=== PATIENT | female | born 1995 | race American Indian/Alaskan Native ===

== ENCOUNTER 2020-01-16 01:44 | Emergency (ER) | payer SELFPAY ==
[2020-01-16 01:55] VITALS: BP 133/52
[2020-01-16] MEDS ORDERED: ACETAMINOPHEN 500 MG TAB PO ONE (03:27)
[2020-01-16] MEDS ORDERED: IBUPROFEN 600 MG TAB PO ONE ×2 (03:28→03:29)
[2020-01-16] MEDS ORDERED: ACETAMINOPHEN 500 MG TAB ONE (03:29)
[2020-01-16] MEDS ORDERED: SODIUM CHLORIDE 0.9% 1000 ML 1,000 ML IV ONE (04:18)
[2020-01-16] MEDS ORDERED: IPRATROPIUM/ALBUTEROL SULFATE 3 ML AMPUL.NEB IH ONE (04:18)
[2020-01-16] MEDS ORDERED: dexAMETHasone 20 MG/5 ML VIAL IV ONE (04:18)
[2020-01-16 04:44] LABS: Basophils % (Auto) 0.3 % (0.0-1.8); Hematocrit 34.3 % (30.3-42.9); Hemoglobin 10.6 gm/dl (10.1-14.3); Lymphocytes # (Auto) 0.9 K/mm3 (1.2-5.4); Lymphocytes % (Auto) 24.7 % (13.4-35.0); Mean Corpuscular HGB Conc 31 % (30-34); Mean Corpuscular Volume 67 fl (79-97); Monocytes # (Auto) 0.2 K/mm3 (0.0-0.8); Monocytes % (Auto) 4.7 % (0.0-7.3); Platelet Count 260 K/mm3 (140-440); Red Blood Count 5.12 M/mm3 (3.65-5.03); Red Cell Distribution Width 19.9 % (13.2-15.2)
[2020-01-16 05:07] LABS: Alanine Aminotransferase 31 units/L (7-56); Albumin 3.6 g/dL (3.9-5); BUN/Creatinine Ratio 11; Blood Urea Nitrogen 9 mg/dL (7-17); Calcium 8.1 mg/dL (8.4-10.2); Hemolysis Index 6
--- NOTE | 2020-01-16 05:33 | XRay Report ---
CHEST PA AND LATERAL VIEWS INDICATION: cough, fever. COMPARISON: None. FINDINGS: Support devices: None. Heart: Within normal limits. Lungs/Pleura: There are patchy airspace opacities in the right mid to lower lung. Left lung is clear. No pleural abnormality. IMPRESSION: 1. Patchy right lung pneumonia Signer Name: Guy Kerns MD Signed: 01/16/2020 5:29 AM Workstation Name: [id number]
[2020-01-16] MEDS ORDERED: levoFLOXacin 750 MG TAB PO ONE (05:55)
--- NOTE | 2020-01-16 06:13 | Emergency Department Report ---
- General Chief Complaint: Upper Respiratory Infection Stated Complaint: HEADACHE, DIFFICULTY IN BREATHING Source: patient Mode of arrival: Ambulatory Limitations: No Limitations - History of Present Illness Initial Comments: Patient is a nulliparous 24-year-old -Scottish female with a history of asthma who presents to the ED with complaint of acute onset persistent nasal and sinus congestion, severe frontal sinus pressure and frontal headache, persistent dry cough with wheezing and shortness of breath, diffuse body aches and pains, lack of appetite, intermittent fever of up to 102 F for the last 1 week. Patient states that her own mother has had similar symptoms. Patient also states that the whole family has been tested for COVID-19 viral infection, the results of which are pending at this time. Patient states that she has been taking anjx-kjl-aywxevg medications including decongestants and antipyretics with no relief. Patient also states that she has been using her albuterol inh aler more frequently at home since the onset of the symptoms. Patient also states that the last time she took antipyretics was over 12 hours ago. Patient denies dizziness, syncope, chest pain, abdominal pain, nausea, vomiting, diarrhea, dysuria, urinary frequency and urgency, sore throat, low back pain or vaginal bleeding. MD Complaint: fever, cough, rhinorrhea, nasal congestion, sinus pain, other (Diffuse body aches and pains and shortness of breath) -: Sudden, week(s) (1) Severity: severe Severity scale (0 -10): 7 Quality: sharp, aching Consistency: constant Improves With: nothing Worsens With: nothing Context: sick contacts Associated Symptoms: denies other symptoms, fever, chills, myalgias, headache, rhinorrhea, nasal congestion, cough, shortness of breath. denies: diaphoresis, sore throat, chest pain, abdominal pain, nausea, vomiting, diarrhea, dysuria, rash, right sweats, weight loss, hoarseness, ear pain, other Treatments Prior to Arrival: Acetaminophen, "cold medicine" - Related Data Previous Rx's Medication Instructions Recorded Last Taken Type Benzonatate [Tessalon Perles] 100 mg PO Q8HR #30 capsule 01/16/20 Unknown Rx Cetirizine HCl [Zyrtec 10mg tab] 10 mg PO DAILY #30 tablet 01/16/20 Unknown Rx Ibuprofen [Motrin] 800 mg PO Q8HR PRN #30 tablet 01/16/20 Unknown Rx levoFLOXacin [Levaquin TAB] 500 mg PO QDAY #10 tablet 01/16/20 Unknown Rx methylPREDNISolone [Medrol 4MG 4 mg PO DAILY #21 tab.ds.pk 01/16/20 Unknown Rx DOSEPAK (21 tabs)] Allergies Allergy/AdvReac Type Severity Reaction Status Date / Time No Known Allergies Allergy Verified 01/16/20 03:28 ED Review of Systems ROS: Stated complaint: HEADACHE, DIFFICULTY IN BREATHING Other details as noted in HPI Constitutional: chills, fever, malaise, weakness Eyes: denies: eye pain, eye discharge, vision change ENT: congestion, other (Grossly congested nasal passages; frontal sinus pressure). denies: ear pain, throat pain Respiratory: cough, shortness of breath, wheezing Cardiovascular: denies: chest pain, palpitations Endocrine: no symptoms reported Gastrointestinal: denies: abdominal pain, nausea, vomiting, diarrhea Genitourinary: denies: urgency, dysuria, discharge Musculoskeletal: back pain, arthralgia, myalgia. denies: joint swelling Skin: denies: rash, lesions Neurological: headache. denies: weakness, paresthesias Psychiatric: denies: anxiety, depression Hematological/Lymphatic: denies: easy bleeding, easy bruising ED Past Medical Hx - Past Medical History Hx Asthma: Yes - Surgical History Past Surgical History?: No - Social History Smoking Status: Never Smoker Substance Use Type: Alcohol - Medications Home Medications: Home Medications Medication Instructions Recorded Confirmed Last Taken Type Benzonatate [Tessalon Perles] 100 mg PO Q8HR #30 capsule 01/16/20 Unknown Rx Cetirizine HCl [Zyrtec 10mg tab] 10 mg PO DAILY #30 tablet 01/16/20 Unknown Rx Ibuprofen [Motrin] 800 mg PO Q8HR PRN #30 tablet 01/16/20 Unknown Rx levoFLOXacin [Levaquin TAB] 500 mg PO QDAY #10 tablet 01/16/20 Unknown Rx methylPREDNISolone [Medrol 4MG 4 mg PO DAILY #21 tab.ds.pk 01/16/20 Unknown Rx DOSEPAK (21 tabs)] ED Physical Exam - General Limitations: No Limitations General appearance: alert, in no apparent distress - Head Head exam: Present: atraumatic, normocephalic, normal inspection - Eye Eye exam: Present: normal appearance, PERRL, EOMI Pupils: Present: normal accommodation - ENT ENT exam: Present: normal orophraynx, mucous membranes moist, TM's normal bilaterally, normal external ear exam, other (Grossly congested nasal passages, palpable frontal and maxillary sinus tenderness) - Neck Neck exam: Present: normal inspection, full ROM. Absent: tenderness, lymphadenopathy - Respiratory Respiratory exam: Present: wheezes (Diffusely coarse wheezes and mild rails in the right lower lobe), rales. Absent: respiratory distress, rhonchi, chest wall tenderness, accessory muscle use, decreased breath sounds - Cardiovascular Cardiovascular Exam: Present: normal rhythm, tachycardia, normal heart sounds. Absent: systolic murmur, diastolic murmur, rubs, gallop - GI/Abdominal GI/Abdominal exam: Present: soft, normal bowel sounds. Absent: tenderness, guarding, rebound, hyperactive bowel sounds, hypoactive bowel sounds, organomegaly, bruit - Extremities Exam Extremities exam: Present: normal inspection, full ROM, normal capillary refill. Absent: pedal edema, joint swelling - Back Exam Back exam: Present: normal inspection, full ROM. Absent: tenderness, CVA tenderness (R), CVA tenderness (L), muscle spasm, paraspinal tenderness, vert ebral tenderness - Neurological Exam Neurological exam: Present: alert, oriented X3, CN II-XII intact, normal gait, reflexes normal - Psychiatric Psychiatric exam: Present: normal affect, normal mood - Skin Skin exam: Present: warm, dry, intact, normal color. Absent: rash ED Course Vital Signs 01/16/20 01/16/20 01/16/20 01:52 03:25 06:34 Temperature 102.2 F H 102.4 F H 98.3 F Pulse Rate 119 H 114 H 106 H Respiratory 18 18 16 Rate Blood Pressure 133/52 O2 Sat by Pulse 94 100 95 Oximetry ED Medical Decision Making - Lab Data Result diagrams: 01/16/20 04:32 01/16/20 04:32 - Radiology Data Radiology results: report reviewed, image reviewed Findings [facility] [address] [place] [address] XRay Report Signed Patient: SOUMYA PELLETIER MR#: [id number] : 1995 Acct:[id number] Age/Sex: 24 / F ADM Date: 01/16/20 Loc: ED Attending Dr: Ordering Physician: SIDDHARTHA BAKER Date of Service: 01/16/20 Procedure(s): XR chest routine 2V Accession Number(s): [id number] cc: SIDDHARTHA BAKER Fluoro Time In Minutes: CHEST PA AND LATERAL VIEWS INDICATION: cough, fever. COMPARISON: None. FINDINGS: Support devices: None. Heart: Within normal limits. Lungs/Pleura: There are patchy airspace opacities in the right mid to lower lung. Left lung is clear. No pleural abnormality. IMPRESSION: 1. Patchy right lung pneumonia Signer Name: Guy Kerns MD Signed: 01/16/2020 5:29 AM Workstation Name: [id number] Transcribed By: SHAAN Dictated By: Guy Kerns MD Electronically Authenticated By: Guy Kerns MD Signed Date/Time: 01/16/20528 DD/ 7 TD/TT - Medical Decision Making This is a nulliparous 24-year-old -Scottish female with a history of asthma who presents to the ED with complaint of acute onset persistent nasal and sinus congestion, severe frontal sinus pressure and frontal headache, persistent dry cough with wheezing and shortness of breath, diffuse body aches and pains, lack of appetite, intermittent fever of up to 102 F for the last 1 week. Patient states that her own mother has had similar symptoms. Patient also states that the whole family has been tested for COVID-19 viral infection, the results of which are pending at this time. Patient states that she has been taking xknh-dgc-hczhsrp medications including decongestants and antipyretics with no relief. Patient also states that she has been using her albuterol inhaler more frequently at home since the onset of the symptoms. Patient also states that the last time she took antipyretics was over 12 hours ago. In the ED, patient is alert and oriented x3 and is not in distress but tachycardic and febrile in triage. Patient was treated for fever in the ED with Tylenol and ibuprofen. Patient also received DuoNeb treatment and oral steroid. Lab test results were reviewed and showed mild leukopenia of 3.8. The rest of the lab test results are nonactionable. Chest x-ray shows patchy airspace opacities in the right mid to lower lung. Left lung is otherwise clear. No pleural abnormality. Patient was also treated in the ED with Levaquin 750 mg p.o. x1. On reevaluation, patient's fever and tachycardia resolved. Patient was discharged home on medications including oral antibiotics and was advised to follow-up with her primary care physician in 5 to 7 days for reevaluation or return to the ED immediately if symptoms get worse. - Differential Diagnosis pneumonia; bronchitis; asthma; sinusitis; Covid-19; URI Critical care attestation.: If time is entered above; I have spent that time in minutes in the direct care of this critically ill patient, excluding procedure time. ED Disposition Clinical Impression: Fever and chills, Acute upper respiratory infection Community acquired pneumonia Qualifiers: Laterality: right Lung location: lower lobe of lung Qualified Code(s): J18.9 - Pneumonia, unspecified organism Acute frontal sinusitis Qualifiers: Recurrence: non-recurrent Qualified Code(s): J01.10 - Acute frontal sinusitis, unspecified Disposition: DC- TO HOME OR SELFCARE Is pt being admited?: No Does the pt Need Aspirin: No Condition: Stable Instructions: Fever in Adults (ED), Upper Respiratory Infection (ED), Acute Bacterial Rhinosinusitis (ED), Community-acquired Pneumonia (ED) Additional Instructions: Your lab test results are unremarkable. Chest x-ray however shows pneumonia in the right lower lobe of the lung. Therefore take medications with food, drink plenty of fluids and follow-up with your primary care physician in 5 to 7 days for reevaluation. Return to the ED immediately if symptoms get worse. Prescriptions: levoFLOXacin [Levaquin TAB] 500 mg PO QDAY #10 tablet methylPREDNISolone [Medrol 4MG DOSEPAK (21 tabs)] 4 mg PO DAILY #21 tab.ds.pk Ibuprofen [Motrin] 800 mg PO Q8HR PRN #30 tablet PRN Reason: Pain , Severe (7-10) Benzonatate [Tessalon Perles] 100 mg PO Q8HR #30 capsule Cetirizine HCl [Zyrtec 10mg tab] 10 mg PO DAILY #30 tablet Referrals: [facility] [Provider Group] - 7-10 days Time of Disposition: 06:22 Print Language: ITALIAN
[2020-01-16 06:19] LABS: Bacteria,Urine 1+ /HPF (Negative); Bilirubin,Urine NEG (Negative); Blood,Urine NEG (Negative); Color,Urine Yellow (Yellow); Mucus,Urine FEW /HPF; Urobilinogen,Urine < 2.0 mg/dL (<2.0)
== END 2020-01-16 06:50 | disposition home or self-care (01) ==
LOC: ED 01:44
DX: J18.9 Pneumonia, unspecified organism (principal); J01.10 Acute frontal sinusitis, unspecified; J45.909 Unspecified asthma, uncomplicated
CPT/HCPCS: 36415; 71046; 80053; 81001; 84703; 85025; 87116; 87400; 87430; 94640; 96374; 99284; J1100

== ENCOUNTER 2020-05-19 17:25 | Emergency (ER) | payer OTHER ==
[2020-05-19 17:39] VITALS: BP 130/49
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
== END 2020-05-19 19:00 | disposition home or self-care (01) ==
LOC: ED 17:25
DX: M43.06 Spondylolysis, lumbar region (principal); M54.6 Pain in thoracic spine; J45.909 Unspecified asthma, uncomplicated; Z79.1 Long term (current) use of non-steroidal anti-inflammatories (NSAID); Z79.899 Other long term (current) drug therapy; V49.59XA Passenger injured in collision with other motor vehicles in traffic accident, initial encounter; Y93.89 Activity, other specified; Y92.410 Unspecified street and highway as the place of occurrence of the external cause; Y99.8 Other external cause status
CPT/HCPCS: 72100; 72131

== ENCOUNTER 2020-10-27 15:00 | Emergency (ER) | payer SELFPAY ==
[2020-10-27 16:09] VITALS: BP 130/84
[2020-10-27] MEDS ORDERED: dexAMETHasone 20 MG/5 ML VIAL IM ONE (16:41)
[2020-10-27] MEDS ORDERED: ALBUTEROL 2.5 MG/3 ML NEBU IH ONE (16:41)
[2020-10-27] MEDS ORDERED: IPRATROPIUM 0.02% NEBU 2.5 ML IH ONE (16:41)
--- NOTE | 2020-10-27 16:41 | Event Note ---
ED Screening Note ED Screening Note: asthma exacerbation that began 2PM today states she used her inhaler without much relief states she ran out of her solution for her nebulizer machine no fever, no v/d, no productive cough no recent travel no sick contacts PMHx none no allergies to meds LNMP: 10/14/2020 This initial assessment/diagnostic orders/clinical plan/treatment(s) is/are subject to change based on patients health status, clinical progression and re- assessment by fellow clinical providers in the ED. Further treatment and workup at subsequent clinical providers discretion. Patient/guardian urged not to elope from the ED as their condition may be serious if not clinically assessed and managed. Initial orders include: meds
--- NOTE | 2020-10-27 17:28 | Emergency Department Report ---
ED Asthma HPI - General Chief Complaint: Adult Asthma Stated Complaint: ASTHMA Time Seen by Provider: 10/27/20 16:40 Source: patient Mode of arrival: Ambulatory Limitations: No Limitations - History of Present Illness Initial Comments: 25-year-old -[place] female with a history of asthma presents to the emergency room for wheezing shortness of breath and cough that started about 2 PM today. Patient states that she has been using her inhaler and nebulizer. She states she ran out of her inhaler this afternoon. She denies any fever no chills no nausea no vomiting no diarrhea. She does admit to postnasal drip sneezing. She is unaware if she has a history of seasonal allergies. MD Complaint: "asthma attack", shortness of breath, wheezing -: This afternoon Time: 14:00 Asthma History: history of frequent attac Severity: mild Context: ran out of meds Associated Symptoms: productive cough, dry cough. denies: fever, chest pain Treatments Prior to Arrival: inhaled bronchodilator - Related Data Current Asthma Therapy: inhaled bronchodilator Previous Rx's Medication Instructions Recorded Last Taken Type Benzonatate [Tessalon Perles] 100 mg PO Q8HR #30 capsule 01/16/20 Unknown Rx Cetirizine HCl [Zyrtec 10mg tab] 10 mg PO DAILY #30 tablet 01/16/20 Unknown Rx Ibuprofen [Motrin] 800 mg PO Q8HR PRN #30 tablet 01/16/20 Unknown Rx levoFLOXacin [Levaquin TAB] 500 mg PO QDAY #10 tablet 01/16/20 Unknown Rx methylPREDNISolone [Medrol 4MG 4 mg PO DAILY #21 tab.ds.pk 01/16/20 Unknown Rx DOSEPAK (21 tabs)] Albuterol Sulfate [Proventil Hfa] 1 - 2 puff IH Q6H PRN #1 hfa.aer.ad 01/17/20 Unknown Rx Dicyclomine [Bentyl] 20 mg PO Q6H PRN #20 tablet 01/17/20 Unknown Rx Famotidine [Pepcid] 20 mg PO BID #30 tablet 01/17/20 Unknown Rx Ondansetron [Zofran Odt] 4 mg PO Q6HR PRN #20 tab.rapdis 01/17/20 Unknown Rx Naproxen [EC-Naproxen] 500 mg PO BID PRN #14 tablet. 05/19/20 Unknown Rx methOCARBAMOL [Robaxin TAB] 500 mg PO BID PRN #14 tab 05/19/20 Unknown Rx Albuterol Sulfate [Proair 90 mcg IH QID PRN #1 aer.pow.ba 10/27/20 Unknown Rx Respiclick] Cetirizine HCl [Zyrtec 10mg tab] 10 mg PO DAILY #60 tablet 10/27/20 Unknown Rx Prednisone [predniSONE 5 mg (6-Day 5 mg PO .TAPER #1 tab.ds.pk 10/27/20 Unknown Rx Pack, 21 Tabs)] Allergies Allergy/AdvReac Type Severity Reaction Status Date / Time No Known Allergies Allergy Verified 10/27/20 16:07 ED Review of Systems ROS: Stated complaint: ASTHMA Other details as noted in HPI Comment: All other systems reviewed and negative ED Past Medical Hx - Past Medical History Hx Asthma: Yes - Surgical History Past Surgical History?: No - Social History Smoking Status: Never Smoker Substance Use Type: None - Medications Home Medications: Home Medications Medication Instructions Recorded Confirmed Last Taken Type Benzonatate [Tessalon Perles] 100 mg PO Q8HR #30 capsule 01/16/20 Unknown Rx Cetirizine HCl [Zyrtec 10mg tab] 10 mg PO DAILY #30 tablet 01/16/20 Unknown Rx Ibuprofen [Motrin] 800 mg PO Q8HR PRN #30 tablet 01/16/20 Unknown Rx levoFLOXacin [Levaquin TAB] 500 mg PO QDAY #10 tablet 01/16/20 Unknown Rx methylPREDNISolone [Medrol 4MG 4 mg PO DAILY #21 tab.ds.pk 01/16/20 Unknown Rx DOSEPAK (21 tabs)] Albuterol Sulfate [Proventil Hfa] 1 - 2 puff IH Q6H PRN #1 hfa.aer.ad 01/17/20 Unknown Rx Dicyclomine [Bentyl] 20 mg PO Q6H PRN #20 tablet 01/17/20 Unknown Rx Famotidine [Pepcid] 20 mg PO BID #30 tablet 01/17/20 Unknown Rx Ondansetron [Zofran Odt] 4 mg PO Q6HR PRN #20 tab.rapdis 01/17/20 Unknown Rx Naproxen [EC-Naproxen] 500 mg PO BID PRN #14 tablet. 05/19/20 Unknown Rx methOCARBAMOL [Robaxin TAB] 500 mg PO BID PRN #14 tab 05/19/20 Unknown Rx Albuterol Sulfate [Proair 90 mcg IH QID PRN #1 aer.pow.ba 10/27/20 Unknown Rx Respiclick] Cetirizine HCl [Zyrtec 10mg tab] 10 mg PO DAILY #60 tablet 10/27/20 Unknown Rx Prednisone [predniSONE 5 mg (6-Day 5 mg PO .TAPER #1 tab.ds.pk 10/27/20 Unknown Rx Pack, 21 Tabs)] ED Physical Exam - General Limitations: No Limitations General appearance: alert, in no apparent distress - Head Head exam: Present: atraumatic, normocephalic - Eye Eye exam: Present: normal appearance - ENT ENT exam: Present: normal exam, mucous membranes moist - Respiratory Respiratory exam: Present: wheezes, prolonged expiratory - Cardiovascular Cardiovascular Exam: Present: regular rate, normal rhythm - GI/Abdominal GI/Abdominal exam: Present: soft - Extremities Exam Extremities exam: Present: normal inspection, full ROM - Back Exam Back exam: Present: normal inspection - Neurological Exam Neurological exam: Present: alert, oriented X3, normal gait - Psychiatric Psychiatric exam: Present: normal affect, normal mood - Skin Skin exam: Present: warm, dry, intact, normal color. Absent: rash ED Course Vital Signs 10/27/20 16:08 Temperature 98.1 F Pulse Rate 92 H Respiratory 22 Rate Blood Pressure 130/84 O2 Sat by Pulse 100 Oximetry Critical care attestation.: If time is entered above; I have spent that time in minutes in the direct care of this critically ill patient, excluding procedure time. ED Disposition Clinical Impression: Severely overweight Asthma attack Qualifiers: Asthma severity: mild Asthma persistence: unspecified Qualified Code(s): J45.901 - Unspecified asthma with (acute) exacerbation Disposition: DC-01 TO HOME OR SELFCARE Is pt being admited?: No Does the pt Need Aspirin: No Condition: Stable Instructions: Asthma, Adult, [id number] Additional Instructions: Please use medication as prescribed. Is very important for you to follow-up with a primary care provider. Prescriptions: Prednisone [predniSONE 5 mg (6-Day Pack, 21 Tabs)] 5 mg PO .TAPER #1 tab.ds.pk Albuterol Sulfate [Proair Respiclick] 90 mcg IH QID PRN #1 aer.pow.ba PRN Reason: Wheezing Cetirizine HCl [Zyrtec 10mg tab] 10 mg PO DAILY #60 tablet Referrals: AZUL MCGINNIS MD [Staff Physician] - 3-5 Days Forms: Work/School Release Form(ED)
== END 2020-10-27 18:24 | disposition home or self-care (01) ==
LOC: ED 15:00
DX: E66.3 Overweight (principal); J45.909 Unspecified asthma, uncomplicated; Z79.899 Other long term (current) drug therapy
CPT/HCPCS: 94640; 96372; 99282; J1100

== ENCOUNTER 2021-03-11 09:10 | Emergency (ER) | payer SELFPAY ==
[2021-03-11 09:33] VITALS: BP 154/88
--- NOTE | 2021-03-11 10:30 | Electrocardiograph Report ---
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
--- NOTE | 2021-03-11 11:17 | Emergency Department Report ---
ED General Adult HPI - General Chief complaint: Arrhythmia/Palpitations Stated complaint: CHEST PAIN ANXIETY ATTACK Time Seen by Provider: 03/11/21 10:55 Source: patient Mode of arrival: Ambulatory Limitations: No Limitations - History of Present Illness Initial comments: 25-year-old female patient with history of BMI > 54 and asthma presents to the emergency department with complaints of chest tightness, palpitations, lightheadedness, dizziness, and nausea starting approximately 6 hours ago. [place] when symptoms began. Patient has attributed her symptoms to a "panic attack." However, nena ent has never been diagnosed with anxiety, and has never experienced similar symptoms. Patient states she was not feeling particularly anxious or stressed prior to the onset of her symptoms. Patient endorses decreased oral intake this week following a dental procedure 4 days ago. She drank one Pepsi yesterday, which she states is consistent with her baseline caffeine intake. States her current symptoms are inconsistent with prior asthma flareups. Denies fever, chills, cough, wheezing, vomiting, syncope, seizure, headache, vision changes. Denies all other complaints at this time. Severity scale (0 -10): 0 - Related Data Previous Rx's Medication Instructions Recorded Last Taken Type Benzonatate [Tessalon Perles] 100 mg PO Q8HR #30 capsule 01/16/20 Unknown Rx Cetirizine HCl [Zyrtec 10mg tab] 10 mg PO DAILY #30 tablet 01/16/20 Unknown Rx Ibuprofen [Motrin] 800 mg PO Q8HR PRN #30 tablet 01/16/20 Unknown Rx levoFLOXacin [Levaquin TAB] 500 mg PO QDAY #10 tablet 01/16/20 Unknown Rx methylPREDNISolone [Medrol 4MG 4 mg PO DAILY #21 tab.ds.pk 01/16/20 Unknown Rx DOSEPAK (21 tabs)] Albuterol Sulfate [Proventil Hfa] 1 - 2 puff IH Q6H PRN #1 hfa.aer.ad 01/17/20 Unknown Rx Dicyclomine [Bentyl] 20 mg PO Q6H PRN #20 tablet 01/17/20 Unknown Rx Famotidine [Pepcid] 20 mg PO BID #30 tablet 01/17/20 Unknown Rx Ondansetron [Zofran Odt] 4 mg PO Q6HR PRN #20 tab.rapdis 01/17/20 Unknown Rx Naproxen [EC-Naproxen] 500 mg PO BID PRN #14 tablet.dr 05/19/20 Unknown Rx methOCARBAMOL [Robaxin TAB] 500 mg PO BID PRN #14 tab 05/19/20 Unknown Rx Albuterol Sulfate [Proair 90 mcg IH QID PRN #1 aer.pow.ba 10/27/20 Unknown Rx Respiclick] Cetirizine HCl [Zyrtec 10mg tab] 10 mg PO DAILY #60 tablet 10/27/20 Unknown Rx Prednisone [predniSONE 5 mg (6-Day 5 mg PO .TAPER #1 tab.ds.pk 10/27/20 Unknown Rx Pack, 21 Tabs)] Allergies Allergy/AdvReac Type Severity Reaction Status Date / Time No Known Allergies Allergy Verified 10/27/20 16:07 ED Review of Systems ROS: Stated complaint: CHEST PAIN ANXIETY ATTACK Other details as noted in HPI Other: GENERAL: Negative for fever, chills, weight change, anorexia, fatigue. ENT: Negative for ear pain, difficulty hearing, sore throat, nasal congestion, epistaxis. CARDIOVASCULAR: Positive for palpitations and chest tightness. PULMONARY: Negative for cough, dyspnea, wheezing, orthopnea, cyanosis. GASTROINTESTINAL: Positive for nausea. MUSCULOSKELETAL: Negative for joint pain, joint swelling, myalgias, back pain, neck pain. NEUROLOGICAL: Positive for dizziness and lightheadedness. INTEGUMENTARY: Negative for erythema, rash, diaphoresis, laceration, ecchymosis. HEMATOLOGICAL: Negative for hemoptysis, hematemesis, hematochezia, hematuria. PSYCHIATRIC: Negative for hallucinations, suicidal ideation, homicidal ideation, anxiety, depression. ED Past Medical Hx - Past Medical History Previous Medical History?: Yes Hx Asthma: Yes - Surgical History Past Surgical History?: No - Social History Smoking Status: Never Smoker Substance Use Type: None - Medications Home Medications: Home Medications Medication Instructions Recorded Confirmed Last Taken Type Benzonatate [Tessalon Perles] 100 mg PO Q8HR #30 capsule 01/16/20 Unknown Rx Cetirizine HCl [Zyrtec 10mg tab] 10 mg PO DAILY #30 tablet 01/16/20 Unknown Rx Ibuprofen [Motrin] 800 mg PO Q8HR PRN #30 tablet 01/16/20 Unknown Rx levoFLOXacin [Levaquin TAB] 500 mg PO QDAY #10 tablet 01/16/20 Unknown Rx methylPREDNISolone [Medrol 4MG 4 mg PO DAILY #21 tab.ds.pk 01/16/20 Unknown Rx DOSEPAK (21 tabs)] Albuterol Sulfate [Proventil Hfa] 1 - 2 puff IH Q6H PRN #1 hfa.aer.ad 01/17/20 Unknown Rx Dicyclomine [Bentyl] 20 mg PO Q6H PRN #20 tablet 01/17/20 Unknown Rx Famotidine [Pepcid] 20 mg PO BID #30 tablet 01/17/20 Unknown Rx Ondansetron [Zofran Odt] 4 mg PO Q6HR PRN #20 tab.rapdis 01/17/20 Unknown Rx Naproxen [EC-Naproxen] 500 mg PO BID PRN #14 tablet.dr 05/19/20 Unknown Rx methOCARBAMOL [Robaxin TAB] 500 mg PO BID PRN #14 tab 05/19/20 Unknown Rx Albuterol Sulfate [Proair 90 mcg IH QID PRN #1 aer.pow.ba 10/27/20 Unknown Rx Respiclick] Cetirizine HCl [Zyrtec 10mg tab] 10 mg PO DAILY #60 tablet 10/27/20 Unknown Rx Prednisone [predniSONE 5 mg (6-Day 5 mg PO .TAPER #1 tab.ds.pk 10/27/20 Unknown Rx Pack, 21 Tabs)] ED Physical Exam - General Limitations: No Limitations - Other Other exam information: General: Awake and alert. No acute distress. Head: Atraumatic, normocephalic. Eyes: EOMI. Pupils are equal and round. Normal sclera and conjunctiva. ENT: Oral mucosa is moist. Normal pharyngeal exam. Neck: Supple. No lymphadenopathy. Pulmonary: No respiratory distress. Clear to auscultation bilaterally. Cardiac: Tachycardic. Pulses are palpable and equal bilaterally. No lower extremity cyanosis or edema. Skin: Warm and dry. No rashes. Abdomen: Soft, non-tender, non-protuberant. No guarding, rigidity, or rebound. Bowel sounds are normal. No organomegaly or masses noted. Back: Normal alignment. No CVA tenderness. Extremities: Symmetrical. Full range of motion intact. Neurological: Alert and oriented, appropriately interactive, no focal deficits. Psych: Cooperative. Appropriate mood and affect. Speech is evenly metered. Thoughts are logically construed. ED Course Vital Signs 03/11/21 03/11/21 09:31 19:40 Temperature 97.8 F Pulse Rate 107 H 92 H Respiratory 18 Rate Blood Pressure 154/88 [Right] O2 Sat by Pulse 100 Oximetry ED Medical Decision Making - Lab Data Result diagrams: 03/11/21 11:27 03/11/21 11:27 - EKG Data 03/11/21 11:18 EKG shows sinus tachycardia with a ventricular rate of 114 bpm. Normal axis. Normal OK interval. Normal QT interval. Good R wave progression. Isolated T wave inversion noted to lead III. No old EKG available for comparison. Over read by attending emergency physician, who agrees with this interpretation. - Medical Decision Making Differential diagnosis including but not limited to: cardiac arrhythmia, perica rditis, pericardial fusion/cardiac tamponade, pulmonary embolism, dehydration, electrode abnormality, hypoglycemia, anemia 11:11: Patient presents to the emergency department with complaints of dizziness and palpitations. Tachycardic on initial evaluation. Vitals otherwise stable. Ordered library monitor, continuous pulse oximetry, peripheral IV access, IV fluids, EKG, and blood work to include D-Dimer, as patient is not an appropriate candidate for clinical rule out using PERC criteria due to her tachycardia. 13:06: Chest x-ray without acute process. Labs unremarkable except D-dimer is elevated. Ordered CTA chest for further evaluation. 15:20: Multiple attempts to establish adequate IV access for CT angiogram with and without ultrasound guidance by several members of the ED staff as well as the vascular access team and PICC line team have been unsuccessful. Order changed to nuclear med ventilation/perfusion scan. Vascular access obtained on the left hand. Nuclear medicine team aware. 17:51: hospital laboratory technician en route to the emergency department. 18:54: On reevaluation, patient is stable and symptoms have improved. No hypoxia, no respiratory distress. Tachycardia resolved. Repeat heart rate in the 90s. Low probability for pulmonary embolism based on nuclear medicine scan results. She is ambulatory without assistance. Tolerating oral intake without difficulty. No clinical indication for further diagnostic work-up on an emergent basis at this time. Patient will be discharged home with referral to primary care provider for close outpatient follow-up. Patient expressed understanding and is agreeable to plan of care. Hydration encouraged. Strict return precautions provided. Repeat exam is unremarkable and benign. History, exam, diagnostic testing, and current condition do not suggest worrisome pathology to warrant further testing, continued ED treatment, admission, or surgical evaluation at this point. Given the low probability of a significant medical illness, it would be more likely to result in harm than benefit to perform further testing at this stage. Discussed findings, presumptive diagnosis, need for follow-up and specific signs/symptoms that should prompt immediate return to the emergency department. Instructions were explained in detail to the patient in addition to giving written discharge information. Patient expressed understanding and was given the opportunity to ask questions, all of which were satisfactorily answered prior to discharge home. Critical care attestation.: If time is entered above; I have spent that time in minutes in the direct care of this critically ill patient, excluding procedure time. ED Disposition Clinical Impression: Palpitations Disposition: HOME / SELF CARE / HOMELESS Is pt being admited?: No Does the pt Need Aspirin: No Condition: Stable Instructions: Palpitations, [id number] Additional Instructions: Rest. Drink plenty of fluids. Gradually advance physical activity slowly as tolerated. Follow-up with your primary care provider this week. Call Sunday to schedule an appointment. Return to the emergency department immediately for new or worsening symptoms. Specifically, return to the emergency department immediately for fever, worsening chest pain, difficulty breathing, increased palpitations, loss of consciousness, or any other concerns. Referrals: YAMILETH RIGGINS MD [Staff Physician] - 3-5 Days [facility] [Provider Group] - 3-5 Days Time of Disposition: 19:28
[2021-03-11] MEDS ORDERED: SODIUM CHLORIDE 0.9% 1000 ML 1,000 ML IV ONE (11:19)
[2021-03-11 11:31] LABS: Bilirubin,Urine NEG (Negative); Blood,Urine LG (Negative); Color,Urine Yellow (Yellow); Protein,Urine <15 mg/dL mg/dL (Negative); Urobilinogen,Urine < 2.0 mg/dL (<2.0)
[2021-03-11 11:38] LABS: Amphetamine Screen,Urine Negative; Benzodiazepines Screen,Urine Negative; Cannabinoid Screen,Urine Negative; Cocaine Screen,Urine Negative; Methadone Screen,Urine Negative; Opiate Screen,Urine Negative
[2021-03-11 12:28] LABS: Hematocrit 33.1 % (30.3-42.9); Hemoglobin 10.5 gm/dl (10.1-14.3); Mean Corpuscular HGB Conc 32 % (30-34); Mean Corpuscular Volume 71 fl (79-97); Platelet Count 415 K/mm3 (140-440); Red Blood Count 4.65 M/mm3 (3.65-5.03); Red Cell Distribution Width 17.6 % (13.2-15.2)
--- NOTE | 2021-03-11 13:08 | XRay Report ---
CHEST 2 VIEWS INDICATION / CLINICAL INFORMATION: palpitations. COMPARISON: 2 views of the chest from 01/16/2020. FINDINGS: SUPPORT DEVICES: None. HEART / MEDIASTINUM: No significant abnormality. LUNGS / PLEURA: No significant pulmonary abnormality. No significant pleural effusion. No pneumothora x. ADDITIONAL FINDINGS: No significant additional findings. IMPRESSION: 1. No acute abnormality of the chest. Signer Name: Usman Mazariegos MD Signed: 03/11/2021 1:04 PM Workstation Name: [id number]
[2021-03-11 13:20] LABS: Alanine Aminotransferase 28 units/L (7-56); Albumin 4.2 g/dL (3.9-5); BUN/Creatinine Ratio 13; Blood Urea Nitrogen 10 mg/dL (7-17); Calcium 9.2 mg/dL (8.4-10.2); Hemolysis Index 19
[2021-03-11 18:42] LABS: Anisocytosis RARE; Hypochromasia 1+; Total Cells Counted 100
--- NOTE | 2021-03-11 18:59 | Nuclear Medicine Report ---
NUCLEAR MEDICINE PERFUSION LUNG SCAN INDICATION / CLINICAL INFORMATION: tachycardic, elevated D-Dimer, difficult IV access. TECHNIQUE: 5 mCi of Tc-99m MAA were given by IV. COMPARISON: Chest radiograph dated same day. FINDINGS: PERFUSION: No significant perfusion defects. ADDITIONAL FINDINGS: None. IMPRESSION: 1. Low probability for pulmonary embolism. Signer Name: Darnell Angeles MD Signed: 03/11/2021 6:55 PM Workstation Name: [id number]
[2021-03-11] MEDS ORDERED: SODIUM CHLORIDE 0.9% 1000 ML 1,000 ML ONE (19:25)
== END 2021-03-11 20:36 | disposition home or self-care (01) ==
LOC: ED 09:10
DX: R00.2 Palpitations (principal); J45.909 Unspecified asthma, uncomplicated; Z79.899 Other long term (current) drug therapy
CPT/HCPCS: 36415; 71046; 78580; 80053; 80307; 81001; 83735; 84443; 84484; 84703; 85007; 85025; 85379; 93005; 96360; 99284; A9540; J7030

== ENCOUNTER 2021-07-03 21:20 | Emergency (ER) | payer SELFPAY ==
[2021-07-03] MEDS ORDERED: IPRATROPIUM 0.02% NEBU 2.5 ML IH ONE (21:29)
[2021-07-03] MEDS ORDERED: methylPREDNISolone Sod Succinate 125 MG/2 ML INJ IV ONE (21:29)
[2021-07-03] MEDS ORDERED: ALBUTEROL 2.5 MG/3 ML NEBU IH ONE ×2 (21:29→21:31)
[2021-07-03] MEDS ORDERED: SODIUM CHLORIDE 0.9% 1000 ML 1,000 ML IV ONE (21:30)
[2021-07-03] MEDS ORDERED: MAGNESIUM SULFATE 2 GM/50 ML BAG IV ONE (21:30)
[2021-07-03] MEDS ORDERED: dexAMETHasone 20 MG/5 ML VIAL IM ONE (21:31)
--- NOTE | 2021-07-03 21:31 | Emergency Department Report ---
ED Asthma HPI - General Chief Complaint: Adult Asthma Stated Complaint: ASTHMA PUI?: No Time Seen by Provider: 07/03/21 21:29 Source: patient, RN notes reviewed, old records reviewed Mode of arrival: Ambulatory Limitations: No Limitations - History of Present Illness Initial Comments: The patient is a 25-year-old female. She reports a past medical history of body mass index of 53, COVID-19 vaccination not complete/done, reports that she is not , and reports a history of reactive airways disease. She has been admitted to the hospital once. She reports that she has never been intubated. She presents to the ER today with a complaint of 1 day of painless wheezing, and shortness of breath. There is a dry cough. She denies physical pain. She denies loss of taste and smell. She denies fever. The patient denies oral contraceptive use, the possibility of , travel, surgery, immobilization, DVT/pulmonary embolism risk factors MD Complaint: "asthma attack", shortness of breath, wheezing -: Gradual, hour(s) Asthma History: childhood onset, history of frequent attac, history of prior ED visit Severity: moderate Context: other (Patient believes cold weather, change of season) Associated Symptoms: dry cough - Related Data Previous Rx's Medication Instructions Recorded Last Taken Type Cetirizine HCl [Zyrtec 10mg tab] 10 mg PO DAILY #30 tablet 01/16/20 Unknown Rx Cetirizine HCl [Zyrtec 10mg tab] 10 mg PO DAILY #60 tablet 10/27/20 Unknown Rx Albuterol Sulfate [Proair 90 mcg IH Q4HR PRN #2 aer.[email or web address] 07/03/21 Unknown Rx Respiclick] predniSONE [Deltasone] 40 mg PO QDAY #8 tab 07/03/21 Unknown Rx Allergies Allergy/AdvReac Type Severity Reaction Status Date / Time No Known Allergies Allergy Verified 10/27/20 16:07 ED Review of Systems ROS: Stated complaint: ASTHMA Other details as noted in HPI Constitutional: denies: fever Eyes: denies: eye discharge ENT: denies: congestion Respiratory: cough, shortness of breath, SOB with exertion, SOB at rest, wheezing Cardiovascular: denies: chest pain Gastrointestinal: denies: abdominal pain, nausea, vomiting Musculoskeletal: denies: back pain Neurological: denies: headache, weakness ED Past Medical Hx - Past Medical History Hx Asthma: Yes - Surgical History Past Surgical History?: No - Social History Smoking Status: Never Smoker Substance Use Type: None - Medications Home Medications: Home Medications Medication Instructions Recorded Confirmed Last Taken Type Cetirizine HCl [Zyrtec 10mg tab] 10 mg PO DAILY #30 tablet 01/16/20 Unknown Rx Cetirizine HCl [Zyrtec 10mg tab] 10 mg PO DAILY #60 tablet 10/27/20 Unknown Rx Albuterol Sulfate [Proair 90 mcg IH Q4HR PRN #2 aer.[email or web address] 07/03/21 Unknown Rx Respiclick] predniSONE [Deltasone] 40 mg PO QDAY #8 tab 07/03/21 Unknown Rx ED Physical Exam - General Limitations: No Limitations General appearance: alert, in no apparent distress, anxious, obese - Head Head exam: Present: atraumatic, normocephalic - Eye Eye exam: Present: normal appearance, EOMI. Absent: nystagmus - ENT ENT exam: Present: normal exam, normal orophraynx, mucous membranes moist, normal external ear exam - Neck Neck exam: Present: normal inspection, full ROM. Absent: tenderness, meningismus - Respiratory Respiratory exam: Present: respiratory distress, wheezes, rhonchi - Cardiovascular Cardiovascular Exam: Present: normal rhythm, tachycardia, normal heart sounds. Absent: bradycardia, irregular rhythm, systolic murmur, diastolic murmur, rubs, gallop - GI/Abdominal GI/Abdominal exam: Present: soft. Absent: distended, tenderness, guarding, rebound, rigid, pulsatile mass - Extremities Exam Extremities exam: Present: normal inspection, full ROM, other (2+ pulses noted in the bilateral upper extremities. There is no long bony tenderness. Muscular compartments are soft. The pelvis is stable). Absent: pedal edema, calf tenderness - Back Exam Back exam: Present: normal inspection, full ROM. Absent: tenderness, CVA tenderness (R), CVA tenderness (L), paraspinal tenderness, vertebral tenderness - Neurological Exam Neurological exam: Present: alert, oriented X3, normal gait, other (No facial droop. Tongue midline. Extraocular movements intact bilaterally. Facial sensation intact to light touch in V1, V2, V3 distribution bilaterally. 5 and a 5 strength in 4 extremities. Sensation intact to light touch in 4 extremities.). Absent: motor sensory deficit - Psychiatric Psychiatric exam: Present: anxious - Skin Skin exam: Present: warm, dry, intact, normal color. Absent: rash ED Course Vital Signs 07/03/21 07/03/21 21:21 21:24 Temperature 97.5 F L Pulse Rate 134 H 129 H Respiratory 22 Rate Blood Pressure 138/106 O2 Sat by Pulse 97 97 Oximetry - Reevaluation(s) Reevaluation #1: 07/03/21 22:06 Differential diagnosis, including but not limited to: Reactive airways disease, bronchitis, asthma exacerbation, COVID-19 vaccination not done, body mass index 53 Assessment and plan: 25-year-old female, who denies DVT and pulmonary embolism risk factors, who is low risk by Wells criteria for pulmonary embolism, reports a known history of chronic reactive airways disease flares in exacerbation, who likely presents with the aforementioned. On examination she is sober and walks with a steady gait. Place patient on classroom monitor, start albuterol, Atrovent, steroids, magnesium and fluids. Reassess after initial data points. Patient counseled to receive COVID-19 vaccination as an outpatient. 07/03/21 23:31 The patient is reevaluated. In a quiet room, she has transmitted upper airway sounds. However, her lung sounds are clear. The patient is noted to have noisy audible breathing, but her throat exam is unremarkable. When I asked the patient to open up her mouth, and take a deep breath, her transmitted upper airway sounds resolved. Patient had a similar presentation in February 2021 at this hospital, she had extensive work-up by my colleague, including a low probability nuclear medicine study, and unremarkable laboratory studies. She was presumptively diagnosed with anxiety. The patient's repeat heart rate is still 129 bpm. This may be a combination of anxiety, albuterol administration, I will give the patient a trial dose of midazolam. We will also obtain x-ray of the chest 07/04/21 01:01 Patient sleeping. No respiratory distress. Heart rate still 08/01/2009 125 bpm. When I walked into the room, her transmitted upper airway sounds resume. Her lungs are still clear. Her chest x-ray is unremarkable. I suspect that tachycardia secondary to anxiety, and albuterol administration. However, will commence with laboratory and EKG work-up, and reassess. Patient is going to have a prolonged stay here in the emergency room, secondary to her persistent and at this point, incompletely explained tachycardia Will administer additional doses of midazolam 07/04/21 01:03 07/04/21 02:41 Change in plans. Heart rate now 105 to 109 bpm. Patient resting comfortably. No respiratory distress. No wheezes or transmitted upper airway sounds appreciated. Laboratory studies nonactionable, TSH within normal limits, mild hypokalemia reviewed and appreciated, we will initiate oral potassium. At this point time, this patient appears to be medically stable for discharge. This appears to be similar to her prior presentation from a few months ago, in which she had a low probability nuclear medicine study. The patient may indeed have a component of reactive airways disease, and I suspect that her resting tachycardia at this time is secondary to mild anxiety, as well as albuterol administration 07/04/21 02:42 ED Medical Decision Making - Lab Data Result diagrams: 07/04/21 01:31 07/04/21 01:31 Vital Signs 07/03/21 21:21 Pulse Rate 134 H O2 Sat by Pulse 97 Oximetry Vital Signs 07/03/21 07/03/21 21:21 21:24 Temperature 97.5 F L Pulse Rate 134 H 129 H Respiratory 22 Rate Blood Pressure 138/106 O2 Sat by Pulse 97 97 Oximetry Lab Results 07/04/21 07/04/21 07/04/21 Range/Units 01:31 01:31 01:31 WBC 8.5 (4.5-11.0) K/mm3 RBC 4.93 (3.65-5.03) M/mm3 Hgb 10.0 L (10.1-14.3) gm/dl Hct 33.1 (30.3-42.9) % MCV 67 L (79-97) fl MCH 20 L (28-32) pg MCHC 30 (30-34) % RDW 20.8 H (13.2-15.2) % Plt Count 429 (140-440) K/mm3 Lymph % (Auto) 8.7 L (13.4-35.0) % [place] % (Auto) 2.2 (0.0-7.3) % Eos % (Auto) 0.1 (0.0-4.3) % Baso % (Auto) 0.3 (0.0-1.8) % Lymph # (Auto) 0.7 L (1.2-5.4) K/mm3 [place] # (Auto) 0.2 (0.0-0.8) K/mm3 Eos # (Auto) 0.0 (0.0-0.4) K/mm3 Baso # (Auto) 0.0 (0.0-0.1) K/mm3 Seg Neutrophils % 88.7 H (40.0-70.0) % Seg Neutrophils # 7.5 (1.8-7.7) K/mm3 PT 13.2 (12.2-14.9) Sec. INR 0.90 (0.87-1.13) Sodium 138 (137-145) mmol/L Potassium 3.3 L (3.6-5.0) mmol/L Chloride 101.8 (98-107) mmol/L Carbon Dioxide 22 (22-30) mmol/L Anion Gap 18 mmol/L BUN 12 (7-17) mg/dL Creatinine 0.8 (0.6-1.2) mg/dL Estimated GFR > 60 ml/min BUN/Creatinine Ratio 15 % Glucose 137 H (65-100) mg/dL Calcium 8.8 (8.4-10.2) mg/dL Magnesium 2.40 H (1.7-2.3) mg/dL Troponin T (0.00-0.029) ng/mL TSH (0.270-4.200) mlU/mL HCG, Quant (0-4) mIU/mL 07/04/21 07/04/21 07/04/21 Range/Units 01:31 01:31 01:31 WBC (4.5-11.0) K/mm3 RBC (3.65-5.03) M/mm3 Hgb (10.1-14.3) gm/dl Hct (30.3-42.9) % MCV (79-97) fl MCH (28-32) pg MCHC (30-34) % RDW (13.2-15.2) % Plt Count (140-440) K/mm3 Lymph % (Auto) (13.4-35.0) % [place] % (Auto) (0.0-7.3) % Eos % (Auto) (0.0-4.3) % Baso % (Auto) (0.0-1.8) % Lymph # (Auto) (1.2-5.4) K/mm3 [place] # (Auto) (0.0-0.8) K/mm3 Eos # (Auto) (0.0-0.4) K/mm3 Baso # (Auto) (0.0-0.1) K/mm3 Seg Neutrophils % (40.0-70.0) % Seg Neutrophils # (1.8-7.7) K/mm3 PT (12.2-14.9) Sec. INR (0.87-1.13) Sodium (137-145) mmol/L Potassium (3.6-5.0) mmol/L Chloride (98-107) mmol/L Carbon Dioxide (22-30) mmol/L Anion Gap mmol/L BUN (7-17) mg/dL Creatinine (0.6-1.2) mg/dL Estimated GFR ml/min BUN/Creatinine Ratio % Glucose (65-100) mg/dL Calcium (8.4-10.2) mg/dL Magnesium (1.7-2.3) mg/dL Troponin T < 0.010 (0.00-0.029) ng/mL TSH 1.060 (0.270-4.200) mlU/mL HCG, Quant < 2 (0-4) mIU/mL - EKG Data -: EKG Interpreted by Md EKG shows normal: sinus rhythm Rate: tachycardia - EKG Data 07/04/21 02:40 The EKG is interpreted at 01: 49 Sinus rhythm, tachycardia, rate 121 bpm. Normal axis, normal P wave axis. QTC 4 7 1 ms. Abnormal EKG. Not a STEMI - Radiology Data Radiology results: pending, report reviewed, image reviewed CHEST 1 VIEW 07/04/2021 12:26 AM INDICATION / CLINICAL INFORMATION: dyspnea. COMPARISON: 2 views of the chest from 03/11/2021 FINDINGS: SUPPORT DEVICES: None. HEART / MEDIASTINUM: No significant abnormality. LUNGS / PLEURA: No significant pulmonary abnormality. No significant pleural effusion. No pneumothorax. ADDITIONAL FINDINGS: No significant additional findings. IMPRESSION: 1. No acute abnormality of the chest. Signer Name: Usman Mazariegos MD Signed: 07/03/2021 11:29 PM Workstation Name: Search to [id number] Critical Care Time: Yes Critical care time in (mins) excluding proc time.: 35 Critical care attestation.: If time is entered above; I have spent that time in minutes in the direct care of this critically ill patient, excluding procedure time. ED Disposition Clinical Impression: Reactive airway disease, COVID-19 vaccination not done, Body mass index (BMI) of 50-59.9 in adult Disposition: 01 HOME / SELF CARE / HOMELESS Is pt being admited?: No Does the pt Need Aspirin: No Condition: Good Instructions: Asthma and Physical Activity Additional Instructions: Please take the cough medicine/albuterol as directed for the next 5 days. Take the steroids as directed for the next 4 days. Recommend that patient receive outpatient COVID-19 vaccination. Patient found to have body mass index of 53. Recommend that patient aggressively lose weight, diet, and exercise as tolerated. Please follow-up with an outpatient primary care doctor within the next 7 to 10 days. Please return to the emergency room right away with new pain, worsened pain, migration of pain, projectile vomiting, change in mental status, confusion, inability tolerate liquid feeds, new, worsened or different symptoms not present on the initial emergency room evaluation Prescriptions: predniSONE [Deltasone] 40 mg PO QDAY #8 tab Albuterol Sulfate [Proair Respiclick] 90 mcg IH Q4HR PRN #2 aer.pow.ba PRN Reason: Wheezing Referrals: [facility] [Provider Group] - 7-10 days
[2021-07-03 22:22] VITALS: BP 138/106
[2021-07-03] MEDS ORDERED: MIDAZOLAM 2 MG/2 ML INJ IV ONE (23:30)
--- NOTE | 2021-07-04 00:33 | XRay Report ---
CHEST 1 VIEW 07/04/2021 12:26 AM INDICATION / CLINICAL INFORMATION: dyspnea. COMPARISON: 2 views of the chest from 03/11/2021 FINDINGS: SUPPORT DEVICES: None. HEART / MEDIASTINUM: No significant abnormality. LUNGS / PLEURA: No significant pulmonary abnormality. No significant pleural effusion. No pneumothora x. ADDITIONAL FINDINGS: No significant additional findings. IMPRESSION: 1. No acute abnormality of the chest. Signer Name: Usman Mazariegos MD Signed: 07/04/2021 12:29 AM Workstation Name: [id number]
[2021-07-04] MEDS ORDERED: MIDAZOLAM 2 MG/2 ML INJ IV ONE (01:01)
[2021-07-04 01:50] LABS: Basophils % (Auto) 0.3 % (0.0-1.8); Eosinophils % (Auto) 0.1 % (0.0-4.3); Lymphocytes # (Auto) 0.7 K/mm3 (1.2-5.4); Lymphocytes % (Auto) 8.7 % (13.4-35.0); Mean Corpuscular HGB Conc 30 % (30-34); Monocytes # (Auto) 0.2 K/mm3 (0.0-0.8); Monocytes % (Auto) 2.2 % (0.0-7.3); Platelet Count 429 K/mm3 (140-440); Red Blood Count 4.93 M/mm3 (3.65-5.03)
[2021-07-04 01:55] LABS: Hematocrit 33.1 % (30.3-42.9); Mean Corpuscular Volume 67 fl (79-97); Red Cell Distribution Width 20.8 % (13.2-15.2)
[2021-07-04 02:01] LABS: INR 0.9 (0.87-1.13)
[2021-07-04 02:07] LABS: BUN/Creatinine Ratio 15; Blood Urea Nitrogen 12 mg/dL (7-17); Calcium 8.8 mg/dL (8.4-10.2); Hemolysis Index 0
[2021-07-04] MEDS ORDERED: POTASSIUM CHLORIDE ER 20 MEQ TAB PO ONE (02:16)
--- NOTE | 2021-07-05 17:30 | Electrocardiograph Report ---
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
== END 2021-07-04 03:00 | disposition home or self-care (01) ==
LOC: ED 21:20
DX: J45.909 Unspecified asthma, uncomplicated (principal); Z79.899 Other long term (current) drug therapy; R79.1 Abnormal coagulation profile; Z68.43 Body mass index [BMI] 50.0-59.9, adult
CPT/HCPCS: 36415; 71045; 80048; 83735; 84443; 84484; 84702; 85025; 85610; 93005; 94640; 96365; 96372; 96375; 99284; J1100; J2250; J2930; J3475; J7030; Q0162

== ENCOUNTER 2021-07-27 22:10 | Emergency (ER) | payer SELFPAY ==
--- NOTE | 2021-07-27 22:42 | XRay Report ---
CHEST 2 VIEWS INDICATION: CP. COMPARISON: 07/04/2021 FINDINGS: SUPPORT DEVICES: None. HEART: Within normal limits. LUNGS/PLEURA: No acute air space or interstitial disease. No pneumothorax. ADDITIONAL FINDINGS: None. IMPRESSION: 1. No acute findings. Signer Name: Christopher Hill MD Signed: 07/27/2021 10:38 PM Workstation Name: [id number]
[2021-07-28] MEDS ORDERED: ALPRAZolam 1 MG TAB PO ONE (00:35)
[2021-07-28] MEDS ORDERED: ACETAMINOPHEN 500 MG TAB PO ONE (00:35)
[2021-07-28] MEDS ORDERED: IBUPROFEN 600 MG TAB PO ONE (00:35)
[2021-07-28] MEDS ORDERED: ALBUTEROL 2.5 MG/3 ML NEBU IH ONE (00:35)
--- NOTE | 2021-07-28 00:38 | Emergency Department Report ---
ED General Adult HPI - General Chief complaint: Pain General Stated complaint: Chest wall pain Time Seen by Provider: 07/28/21 00:34 Source: patient, RN notes reviewed, old records reviewed Mode of arrival: Ambulatory Limitations: No Limitations - History of Present Illness Initial comments: The patient was evaluated in the emergency department for symptoms described in the history of present illness. He/she was evaluated in the context of the global COVID-19 pandemic, which necessitated consideration that the patient might be at risk for infection with the virus that causes COVID-19. Institutional protocols and algorithms that pertain to the evaluation of patients at risk for COVID-19 are in a state of rapid change based on information released by regulatory bodies including the CDC and federal and state organizations. These policies and algorithms were followed during the patient's care in the emergency department. Please note that these policies, procedures and recommendations changed on a rapid basis. During the history and physical examination, I am chaperoned by Emely Dudley. This is a 25-year-old female. I have evaluated this patient in the past. In the past few months, the patient has presented to this hospital with complaint of wheezing, shortness of breath and chest tightness. She has had extensive work-up here in this department, including laboratory studies which demonstrated normal troponin x2, x-ray the chest which was unremarkable, normal TSH, and low probability nuclear medicine study. The patient presents to the ER today with a complaint of chest wall pain, along the inferior aspect of her bilateral bra line, which has been present for about 24 to 36 hours. The patient denies vomiting, diaphoresis, exertional shortness of breath, , leg pain, leg swelling, DVT, pulmonary embolism risk factors. She also reports that she is feeling a little bit anxious. She has not taken anything for pain at home. Her chest wall pain is intermittent, throbbing, increases with palpation, and decreases with rest. This is similar to her prior presentations by the patient's history. The patient denies loss of taste and smell. The patient denies known COVID exposure. The patient felt improved with Tylenol and Motrin -: Gradual, days(s) Location: chest (Anterior and lateral chest wall, primarily at the bra line) Consistency: other Improves with: other Worsens with: other - Related Data Previous Rx's Medication Instructions Recorded Last Taken Type Cetirizine HCl [Zyrtec 10mg tab] 10 mg PO DAILY #30 tablet 01/16/20 Unknown Rx Cetirizine HCl [Zyrtec 10mg tab] 10 mg PO DAILY #60 tablet 10/27/20 Unknown Rx Albuterol Sulfate [Proair 90 mcg IH Q4HR PRN #2 aer.pow. 07/03/21 Unknown Rx Respiclick] predniSONE [Deltasone] 40 mg PO QDAY #8 tab 07/03/21 Unknown Rx Acetaminophen [Non-Aspirin Extra 500 mg PO Q6HR PRN #30 tablet 07/28/21 Unknown Rx Strength] Albuterol Sulfate [Proair 90 mcg IH Q4HR PRN #2 aer.pow. 07/28/21 Unknown Rx Respiclick] Ibuprofen [Motrin] 600 mg PO Q8H PRN #30 tablet 07/28/21 Unknown Rx Allergies Allergy/AdvReac Type Severity Reaction Status Date / Time No Known Allergies Allergy Verified 10/27/20 16:07 ED Review of Systems ROS: Stated complaint: CHEST PAIN Other details as noted in HPI Constitutional: denies: fever Eyes: denies: eye discharge Respiratory: wheezing. denies: cough Cardiovascular: chest pain Gastrointestinal: denies: nausea, vomiting Musculoskeletal: myalgia Neurological: denies: weakness Psychiatric: anxiety ED Past Medical Hx - Past Medical History Previous Medical History?: Yes Hx Asthma: Yes - Surgical History Past Surgical History?: No - Social History Smoking Status: Never Smoker Substance Use Type: None - Medications Home Medications: Home Medications Medication Instructions Recorded Confirmed Last Taken Type Cetirizine HCl [Zyrtec 10mg tab] 10 mg PO DAILY #30 tablet 01/16/20 Unknown Rx Cetirizine HCl [Zyrtec 10mg tab] 10 mg PO DAILY #60 tablet 10/27/20 Unknown Rx Albuterol Sulfate [Proair 90 mcg IH Q4HR PRN #2 aer.pow. 07/03/21 Unknown Rx Respiclick] predniSONE [Deltasone] 40 mg PO QDAY #8 tab 07/03/21 Unknown Rx Acetaminophen [Non-Aspirin Extra 500 mg PO Q6HR PRN #30 tablet 07/28/21 Unknown Rx Strength] Albuterol Sulfate [Proair 90 mcg IH Q4HR PRN #2 aer.pow. 07/28/21 Unknown Rx Respiclick] Ibuprofen [Motrin] 600 mg PO Q8H PRN #30 tablet 07/28/21 Unknown Rx ED Physical Exam - General Limitations: No Limitations General appearance: alert, in no apparent distress, obese - Head Head exam: Present: atraumatic, normocephalic - Eye Eye exam: Present: normal appearance, EOMI. Absent: nystagmus - ENT ENT exam: Present: normal exam, normal orophraynx, mucous membranes moist - Neck Neck exam: Present: normal inspection, full ROM. Absent: tenderness, meningismus - Respiratory Respiratory exam: Present: normal lung sounds bilaterally, chest wall tenderness, other (There is reproducible chest wall tenderness. There is reproducible breast tenderness. There is no redness, pus or streaking on the breast or chest tissue. Patient provided consent for chest and breast exa mination. Chaperoned by Emely Dudley). Absent: respiratory distress, wheezes, rales, rhonchi, stridor - Cardiovascular Cardiovascular Exam: Present: normal rhythm, tachycardia, normal heart sounds. Absent: bradycardia, irregular rhythm, systolic murmur, diastolic murmur, rubs, gallop - GI/Abdominal GI/Abdominal exam: Present: soft. Absent: distended, tenderness, guarding, rebound, rigid, pulsatile mass - Extremities Exam Extremities exam: Present: normal inspection, full ROM, other (2+ pulses noted in the bilateral upper and lower extremities. There is no palpable cord. negative Homans sign. Muscular compartments are soft. The pelvis is stable.). Absent: pedal edema, calf tenderness - Back Exam Back exam: Present: normal inspection, full ROM. Absent: tenderness, CVA tenderness (R), CVA tenderness (L), paraspinal tenderness, vertebral tenderness - Neurological Exam Neurological exam: Present: alert, oriented X3, normal gait, other (No facial droop. Tongue midline. Extraocular movements intact bilaterally. Facial sensation intact to light touch in V1, V2, V3 distribution bilaterally. 5 and a 5 strength in 4 extremities. Sensation intact to light touch in 4 extremities.). Absent: motor sensory deficit - Psychiatric Psychiatric exam: Present: normal affect, normal mood - Skin Skin exam: Present: warm, dry, intact, normal color. Absent: rash ED Course Vital Signs 07/27/21 07/28/21 22:15 00:49 Temperature 97.7 F 97.9 F Pulse Rate 116 H 99 H Respiratory 18 19 Rate Blood Pressure 140/77 99/58 O2 Sat by Pulse 100 100 Oximetry ED Medical Decision Making - Lab Data Vital Signs 07/27/21 07/28/21 22:15 00:49 Temperature 97.7 F 97.9 F Pulse Rate 116 H 99 H Respiratory 18 19 Rate Blood Pressure 140/77 99/58 O2 Sat by Pulse 100 100 Oximetry - EKG Data -: EKG Interpreted by Nc EKG shows normal: sinus rhythm Rate: normal - EKG Data 07/28/21 01:23 The EKG is interpreted at 12: 41 Sinus rhythm, rate 98 bpm. Normal axis, high left ventricular voltage, QTC 4 7 5 ms. This is an abnormal EKG. This is not a STEMI. - Radiology Data Radiology results: pending, report reviewed, image reviewed CHEST 2 VIEWS INDICATION: CP. COMPARISON: 07/04/2021 FINDINGS: SUPPORT DEVICES: None. HEART: Within normal limits. LUNGS/PLEURA: No acute air space or interstitial disease. No pneumothorax. ADDITIONAL FINDINGS: None. IMPRESSION: 1. No acute findings. Signer Name: Christopher Hill MD Signed: 07/27/2021 9:38 PM Workstation Name: [id number] CHEST 1 VIEW 07/04/2021 12:26 AM INDICATION / CLINICAL INFORMATION: dyspnea. COMPARISON: 2 views of the chest from 03/11/2021 FINDINGS: SUPPORT DEVICES: None. HEART / MEDIASTINUM: No significant abnormality. LUNGS / PLEURA: No significant pulmonary abnormality. No significant pleural effusion. No pneumothorax. ADDITIONAL FINDINGS: No significant additional findings. IMPRESSION: 1. No acute abnormality of the chest. Signer Name: Usman Mazariegos MD Signed: 07/03/2021 11:29 PM Workstation Name: [id number] NUCLEAR MEDICINE PERFUSION LUNG SCAN INDICATION / CLINICAL INFORMATION: tachycardic, elevated D-Dimer, difficult IV access. TECHNIQUE: 5 mCi of Tc-99m MAA were given by IV. COMPARISON: Chest radiograph dated same day. FINDINGS: PERFUSION: No significant perfusion defects. ADDITIONAL FINDINGS: None. IMPRESSION: 1. Low probability for pulmonary embolism. Signer Name: Darnell Angeles MD Signed: 03/11/2021 5:55 PM Workstation Name: [id number] - Medical Decision Making Differential diagnosis, including but not limited to: Costochondritis, anxiety, obesity, encounter for medical screening examination Assessment and plan: 25-year-old female, who is afebrile, with reassuring vital signs and resolved tachycardia, who denies DVT and pulmonary embolism risk factors, who is low risk by Wells criteria for pulmonary embolism, has had extensive radiographic and laboratory evaluation at this facility within the past few months as previously detailed, presenting today with a complaint of reproducible muscular chest wall pain. On my initial assessment, the patient is in no acute distress, noted to be looking at social media videos on her cellular phone, and has a benign and unremarkable physical exam, with the exception of her muscular reproducible chest wall pain. Her x-ray of the chest is unremarkable, her EKG is nonactionable, and she felt improved after appropriate medication. She may follow-up with an outpatient primary care doctor for her chest wall pain and chronic issues. Return precautions are reviewed. Critical care attestation.: If time is entered above; I have spent that time in minutes in the direct care of this critically ill patient, excluding procedure time. ED Disposition Clinical Impression: Chest wall pain, Body mass index exceeds 40 Disposition: 01 HOME / SELF CARE / HOMELESS Is pt being admited?: No Does the pt Need Aspirin: No Condition: Good Instructions: Costochondritis Additional Instructions: Patient is found to have reproducible chest wall tenderness and breast tenderness. This may be coming from costochondritis, and tight fitting bra/brassiere. Patient is also found to have body mass index of 42.1. We recommend that the patient aggressively lose weight, diet and exercise as physically tolerated. Patient may also consider acquiring loosefitting brassiere/bra. Patient may take the pain medications as needed and directed, and breathing medication as needed and directed. Recommend follow-up with her primary care doctor within the next 3 to 4 weeks. Please return to the emergency room right away with new pain, worsened pain, migration of pain, projectile vomiting, change in mental status, confusion, inability tolerate liquid feeds, new, worsened or different symptoms not present on the initial emergency room evaluation Referrals: [facility] [Provider Group] - 3-5 Days Forms: Work/School Release Form(ED)
[2021-07-28 01:41] VITALS: BP 131/74
--- NOTE | 2021-07-28 11:01 | Electrocardiograph Report ---
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
== END 2021-07-28 01:40 | disposition home or self-care (01) ==
LOC: ED 22:10
DX: R07.89 Other chest pain (principal); J45.909 Unspecified asthma, uncomplicated; Z68.41 Body mass index [BMI] 40.0-44.9, adult; Z79.899 Other long term (current) drug therapy
CPT/HCPCS: 71046; 93005; 94640; 99283

== ENCOUNTER 2021-08-11 21:46 | Emergency (ER) | payer SELFPAY ==
[2021-08-12] MEDS ORDERED: IPRATROPIUM 0.02% NEBU 2.5 ML IH ONE (01:58)
[2021-08-12] MEDS ORDERED: predniSONE 20 MG TAB PO ONE (01:58)
[2021-08-12] MEDS ORDERED: ALBUTEROL 2.5 MG/3 ML NEBU IH ONE (01:58)
--- NOTE | 2021-08-12 02:03 | Emergency Department Report ---
HPI - General Chief Complaint: Adult Asthma Time Seen by Provider: 08/12/21 01:52 - HPI HPI: MSE 6 The patient is a 25-year-old female present with a chief complaint of asthma exacerbation. The patient states she developed an asthma exacerbation yesterday with shortness of breath and wheezing. The patient states her nebulizer at home has not helped. Patient states last week she had a "head cold" and her symptoms included headache, sneezing and cough occasionally productive of clear sputum. Patient states she was tested for Covid 3 days ago and tested negative. Patient states she has not been vaccinated against Covid ED Past Medical Hx - Past Medical History Hx Asthma: Yes - Surgical History Past Surgical History?: No - Family History Family history: no significant - Social History Smoking Status: Never Smoker Substance Use Type: None (Denies illicit drug use), Alcohol (Occasional) - Medications Home Medications: Home Medications Medication Instructions Recorded Confirmed Last Taken Type Cetirizine HCl [Zyrtec 10mg tab] 10 mg PO DAILY #30 tablet 01/16/20 Unknown Rx Cetirizine HCl [Zyrtec 10mg tab] 10 mg PO DAILY #60 tablet 10/27/20 Unknown Rx Albuterol Sulfate [Proair 90 mcg IH Q4HR PRN #2 aer.pow.ba 07/03/21 Unknown Rx Respiclick] predniSONE [Deltasone] 40 mg PO QDAY #8 tab 07/03/21 Unknown Rx Acetaminophen [Non-Aspirin Extra 500 mg PO Q6HR PRN #30 tablet 07/28/21 Unknown Rx Strength] Albuterol Sulfate [Proair 90 mcg IH Q4HR PRN #2 aer.pow.ba 07/28/21 Unknown Rx Respiclick] Ibuprofen [Motrin] 600 mg PO Q8H PRN #30 tablet 07/28/21 Unknown Rx Albuterol Mdi (or & Nicu Only) 2 puff IH QID PRN #8.5 gram 08/12/21 Unknown Rx [ProAir HFA Inhaler] Albuterol Sulfate [Albuterol 0.63% 0.63 mg IH TID PRN #75 ml 08/12/21 Unknown Rx NEBS] Prednisone [predniSONE 10 mg 10 mg PO .TAPER #1 08/12/21 Unknown Rx (6-Day Pack, 21 Tabs)] ED Review of Systems ROS: Stated complaint: ASTHMA Other details as noted in HPI Constitutional: denies: fever Eyes: denies: eye pain ENT: denies: throat pain Respiratory: cough, shortness of breath, wheezing Cardiovascular: denies: chest pain Endocrine: no symptoms reported Gastrointestinal: denies: abdominal pain Genitourinary: denies: dysuria Musculoskeletal: denies: back pain Neurological: headache Physical Exam - Physical Exam Vital Signs: Vital Signs 08/12/21 01:49 Temperature 97.9 F Pulse Rate 91 H Respiratory 22 Rate Blood Pressure 124/95 O2 Sat by Pulse 100 Oximetry Physical Exam: GENERAL: The patient is well-developed well-nourished female sitting in chair not appearing to be in acute distress. [] HEENT: Normocephalic. Atraumatic. Extraocular motions are intact. Patient has moist mucous membranes. NECK: Supple. Trachea midline. No stridor CHEST/LUNGS: Faint expiratory wheezes diffusely. There is no respiratory distress noted. HEART/CARDIOVASCULAR: Regular. There is no tachycardia. There is no gallop rub or murmur. ABDOMEN: Abdomen is soft, nontender. Patient has normal bowel sounds. There is no abdominal distention. SKIN: There is no rash. There is no edema. There is no diaphoresis. NEURO: The patient is awake, alert, and oriented. The patient is cooperative. The patient has no focal neurologic deficits. The patient has normal speech. GCS 15 MUSCULOSKELETAL: There is no evidence of acute injury. ED Course Vital Signs 08/12/21 01:49 Temperature 97.9 F Pulse Rate 91 H Respiratory 22 Rate Blood Pressure 124/95 O2 Sat by Pulse 100 Oximetry - Reevaluation(s) Reevaluation #1: 08/12/21 03:31 Patient improved after neb ED Medical Decision Making - Differential Diagnosis Acute asthma exacerbation Critical care attestation.: If time is entered above; I have spent that time in minutes in the direct care of this critically ill patient, excluding procedure time. ED Disposition Clinical Impression: Acute asthma exacerbation Disposition: 01 HOME / SELF CARE / HOMELESS Is pt being admited?: No Does the pt Need Aspirin: No Condition: Stable Instructions: Asthma, Adult Additional Instructions: Return to the emergency department should you develop worsening symptoms, inability to tolerate food or liquids, high fever or any other concerns Prescriptions: Albuterol Sulfate [Albuterol 0.63% NEBS] 0.63 mg IH TID PRN #75 ml PRN Reason: Wheezing Prednisone [predniSONE 10 mg (6-Day Pack, 21 Tabs)] 10 mg PO .TAPER #1 Albuterol Mdi (or & Nicu Only) [ProAir HFA Inhaler] 2 puff IH QID PRN #8.5 gram PRN Reason: Shortness Of Breath Referrals: [facility] [Provider Group] - 3-5 Days Time of Disposition: 03:32
[2021-08-12 04:43] VITALS: BP 127/78
--- NOTE | 2021-08-13 11:41 | Electrocardiograph Report ---
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
== END 2021-08-12 04:44 | disposition home or self-care (01) ==
LOC: ED 21:46
DX: J45.901 Unspecified asthma with (acute) exacerbation (principal); Z72.89 Other problems related to lifestyle; Z79.899 Other long term (current) drug therapy
CPT/HCPCS: 93005; 93010; 94640; 94644; 99283

== ENCOUNTER 2021-11-06 22:14 | Emergency (ER) | payer SELFPAY ==
[2021-11-06 22:24] VITALS: BP 135/85
[2021-11-06] MEDS ORDERED: ALBUTEROL 2.5 MG/3 ML NEBU IH ONE (22:36)
[2021-11-06] MEDS ORDERED: IPRATROPIUM 0.02% NEBU 2.5 ML IH ONE (22:36)
[2021-11-06] MEDS ORDERED: methylPREDNISolone Sod Succinate 125 MG/2 ML INJ IM ONE (22:42)
--- NOTE | 2021-11-06 22:45 | Emergency Department Report ---
ED Asthma HPI - General Chief Complaint: Adult Asthma Stated Complaint: CHEST PAIN/SOB Time Seen by Provider: 11/06/21 22:39 Source: patient Mode of arrival: Ambulatory Limitations: Language Barrier - History of Present Illness Initial Comments: Patient 26 years old female with history of asthma. Patient presented to the ER complaining of shortness of breath generalized wheezing for the last 2 days. Patient stated that she has been using her albuterol with no improvement. Patient denies any fever or chills. No runny nose cough or congestion. No chest pain. MD Complaint: "asthma attack", shortness of breath, wheezing -: days(s) (2) - Related Data Current Asthma Therapy: inhaled bronchodilator Previous Rx's Medication Instructions Recorded Last Taken Type Cetirizine HCl [Zyrtec 10mg tab] 10 mg PO DAILY #30 tablet 01/16/20 Unknown Rx Cetirizine HCl [Zyrtec 10mg tab] 10 mg PO DAILY #60 tablet 10/27/20 Unknown Rx Albuterol Sulfate [Proair 90 mcg IH Q4HR PRN #2 aer.pow.ba 07/03/21 Unknown Rx Respiclick] predniSONE [Deltasone] 40 mg PO QDAY #8 tab 07/03/21 Unknown Rx Acetaminophen [Non-Aspirin Extra 500 mg PO Q6HR PRN #30 tablet 07/28/21 Unknown Rx Strength] Albuterol Sulfate [Proair 90 mcg IH Q4HR PRN #2 aer.pow.ba 07/28/21 Unknown Rx Respiclick] Ibuprofen [Motrin] 600 mg PO Q8H PRN #30 tablet 07/28/21 Unknown Rx Albuterol Mdi (or & Nicu Only) 2 puff IH QID PRN #8.5 gram 08/12/21 Unknown Rx [ProAir HFA Inhaler] Albuterol Sulfate [Albuterol 0.63% 0.63 mg IH TID PRN #75 ml 08/12/21 Unknown Rx NEBS] Prednisone [predniSONE 10 mg 10 mg PO .TAPER #1 08/12/21 Unknown Rx (6-Day Pack, 21 Tabs)] Allergies Allergy/AdvReac Type Severity Reaction Status Date / Time No Known Allergies Allergy Verified 08/12/21 01:51 ED Review of Systems ROS: Stated complaint: CHEST PAIN/SOB Other details as noted in HPI Comment: All other systems reviewed and negative Constitutional: denies: chills, fever Respiratory: shortness of breath, SOB with exertion, SOB at rest, wheezing. denies: cough Cardiovascular: palpitations. denies: chest pain Musculoskeletal: denies: back pain Neurological: denies: headache, weakness ED Past Medical Hx - Past Medical History Previous Medical History?: Yes Hx Asthma: Yes - Surgical History Past Surgical History?: No - Social History Smoking Status: Never Smoker Substance Use Type: None (Denies illicit drug use), Alcohol (Occasional) - Medications Home Medications: Home Medications Medication Instructions Recorded Confirmed Last Taken Type Cetirizine HCl [Zyrtec 10mg tab] 10 mg PO DAILY #30 tablet 01/16/20 Unknown Rx Cetirizine HCl [Zyrtec 10mg tab] 10 mg PO DAILY #60 tablet 10/27/20 Unknown Rx Albuterol Sulfate [Proair 90 mcg IH Q4HR PRN #2 aer.pow.ba 07/03/21 Unknown Rx Respiclick] predniSONE [Deltasone] 40 mg PO QDAY #8 tab 07/03/21 Unknown Rx Acetaminophen [Non-Aspirin Extra 500 mg PO Q6HR PRN #30 tablet 07/28/21 Unknown Rx Strength] Albuterol Sulfate [Proair 90 mcg IH Q4HR PRN #2 aer.pow.ba 07/28/21 Unknown Rx Respiclick] Ibuprofen [Motrin] 600 mg PO Q8H PRN #30 tablet 07/28/21 Unknown Rx Albuterol Mdi (or & Nicu Only) 2 puff IH QID PRN #8.5 gram 08/12/21 Unknown Rx [ProAir HFA Inhaler] Albuterol Sulfate [Albuterol 0.63% 0.63 mg IH TID PRN #75 ml 08/12/21 Unknown Rx NEBS] Prednisone [predniSONE 10 mg 10 mg PO .TAPER #1 08/12/21 Unknown Rx (6-Day Pack, 21 Tabs)] ED Physical Exam - General Limitations: Language Barrier General appearance: alert, in no apparent distress - Head Head exam: Present: atraumatic, normocephalic, normal inspection - Eye Eye exam: Present: normal appearance - ENT ENT exam: Present: normal exam, normal orophraynx, mucous membranes moist - Neck Neck exam: Present: normal inspection, full ROM. Absent: tenderness, meningismus - Respiratory Respiratory exam: Present: normal lung sounds bilaterally, wheezes, rhonchi. Absent: rales, accessory muscle use, decreased breath sounds, prolonged expiratory - Cardiovascular Cardiovascular Exam: Present: tachycardia - GI/Abdominal GI/Abdominal exam: Present: soft, normal bowel sounds. Absent: distended, tenderness, guarding, rebound, rigid, organomegaly, mass, bruit, pulsatile mass - Extremities Exam Extremities exam: Present: normal inspection, full ROM, normal capillary refill. Absent: pedal edema, calf tenderness - Back Exam Back exam: Present: normal inspection, full ROM. Absent: CVA tenderness (R), CVA tenderness (L) - Neurological Exam Neurological exam: Present: alert, oriented X3, CN II-XII intact - Psychiatric Psychiatric exam: Present: normal mood - Skin Skin exam: Present: warm, intact, normal color ED Course Vital Signs 11/06/21 11/06/21 22:20 23:50 Temperature 97.6 F Pulse Rate 123 H Pulse Rate [ 116 H Bilateral Throughout] Respiratory 20 Rate Respiratory 20 Rate [Bilateral Throughout] Blood Pressure 135/85 [Right] O2 Sat by Pulse 100 Oximetry ED Medical Decision Making - Radiology Data Radiology results: report reviewed - Medical Decision Making Patient 26 years old female with history of asthma. Patient presented to the ER complaining of shortness of breath generalized wheezing for the last 2 days. Patient stated that she has been using her albuterol with no improvement. Patient denies any fever or chills. No runny nose cough or congestion. No chest pain. Patient received albuterol, Atrovent and Solu-Medrol. Patient stated that she is feeling much better. Chest x-ray is unremarkable. Patient given prescription for albuterol and prednisone and advised to follow-up with her primary doctor in the next 2 to 3 days and to return to the ER if he develop any new symptoms. Critical care attestation.: If time is entered above; I have spent that time in minutes in the direct care of this critically ill patient, excluding procedure time. ED Disposition Clinical Impression: Acute asthma exacerbation Disposition: HOME / SELF CARE / HOMELESS Is pt being admited?: No Condition: Stable Instructions: Asthma Attack Referrals: PRIMARY CARE, [Referring] - 3-5 Days
--- NOTE | 2021-11-06 23:22 | XRay Report ---
CHEST 1 VIEW 11/06/2021 10:55 PM INDICATION / CLINICAL INFORMATION: SOB. COMPARISON: 2 views of the chest from 07/27/2021. FINDINGS: SUPPORT DEVICES: None. HEART / MEDIASTINUM: No significant abnormality. LUNGS / PLEURA: No significant pulmonary abnormality. No significant pleural effusion. No pneumothora x. ADDITIONAL FINDINGS: No significant additional findings. IMPRESSION: 1. No acute abnormality of the chest. Signer Name: Usman Mazariegos MD Signed: 11/06/2021 11:17 PM Workstation Name: [id number]
== END 2021-11-07 02:47 | disposition home or self-care (01) ==
LOC: ED 22:14
DX: J45.901 Unspecified asthma with (acute) exacerbation (principal); Z72.89 Other problems related to lifestyle; Z79.899 Other long term (current) drug therapy
CPT/HCPCS: 71045; 94644; 96372; 99283; J2930

== ENCOUNTER 2022-03-16 15:46 | Emergency (ER) | payer SELFPAY ==
[2022-03-16] MEDS ORDERED: IPRATROPIUM 0.02% NEBU 2.5 ML IH ONE (17:19)
[2022-03-16] MEDS ORDERED: ALBUTEROL 2.5 MG/3 ML NEBU IH ONE (17:19)
[2022-03-16] MEDS ORDERED: methylPREDNISolone Sod Succinate 125 MG/2 ML INJ IM ONE (17:20)
--- NOTE | 2022-03-16 18:16 | XRay Report ---
CHEST 1 VIEW 03/16/2022 5:03 PM INDICATION / CLINICAL INFORMATION: dyspnea, asthma. COMPARISON: 11/06/2021 FINDINGS: SUPPORT DEVICES: None. HEART / MEDIASTINUM: Normal. LUNGS / PLEURA: No acute pulmonary or pleural findings. No pneumothorax. ADDITIONAL FINDINGS: No significant additional findings. IMPRESSION: 1. No acute findings. Signer Name: Guy Kerns MD Signed: 03/16/2022 6:12 PM Workstation Name: [id number]
--- NOTE | 2022-03-16 19:03 | Emergency Department Report ---
ED Shortness of Breath HPI - General Chief Complaint: Adult Asthma Stated Complaint: CHEST PAIN /ASTHMA Source: patient Mode of arrival: Ambulatory Limitations: No Limitations - History of Present Illness Initial Comments: Patient is a 26-year-old female with history of asthma and morbid obesity presents to the ED with complaint of acute onset persistent shortness of breath, persistent dry cough, nasal and sinus congestion and chest tightness for the last 1 week, worse in the last 3 days. Patient states that she has been using her nebulizers as well as inhalers at home with no relief. Patient denies dizziness, syncope, chest pain, shortness of breath, fever, chills, sore throat, abdominal pain, change in vision, headache, back pain or nausea and vomiting and diarrhea. MD Complaint: shortness of breath, cough, "asthma attack", anxiety -: Gradual, days(s) (3) Severity: moderate Pain Scale: 4 Quality: other (Chest tightness) Consistency: constant Improves With: nothing Worsens With: lying flat, coughing Known History Of: asthma Context: recent URI, allergen exposure Associated Symptoms: cough Treatments Prior to Arrival: bronchodilator - Related Data Home Oxygen Therapy: No Previous Rx's Medication Instructions Recorded Last Taken Type Cetirizine HCl [Zyrtec 10mg tab] 10 mg PO DAILY #30 tablet 01/16/20 Unknown Rx Albuterol Sulfate [Proair 90 mcg IH Q4HR PRN #2 aer.pow.ba 07/03/21 Unknown Rx Respiclick] predniSONE [Deltasone] 40 mg PO QDAY #8 tab 07/03/21 Unknown Rx Acetaminophen [Non-Aspirin Extra 500 mg PO Q6HR PRN #30 tablet 07/28/21 Unknown Rx Strength] Albuterol Sulfate [Proair 90 mcg IH Q4HR PRN #2 aer.pow.ba 07/28/21 Unknown Rx Respiclick] Ibuprofen [Motrin] 600 mg PO Q8H PRN #30 tablet 07/28/21 Unknown Rx Albuterol Mdi (or & Nicu Only) 2 puff IH QID PRN #8.5 gram 08/12/21 Unknown Rx [ProAir HFA Inhaler] Albuterol Sulfate [Albuterol 0.63% 0.63 mg IH TID PRN #75 ml 08/12/21 Unknown Rx NEBS] Albuterol Mdi (or & Nicu Only) 2 puff IH QID PRN #1 inhalation 11/07/21 Unknown Rx [ProAir HFA Inhaler] Prednisone [predniSONE 10 mg 10 mg PO .TAPER #1 tab.ds.pk 11/07/21 Unknown Rx (6-Day Pack, 21 Tabs)] Benzonatate [Tessalon Perles] 100 mg PO Q8HR #30 cap 03/16/22 Unknown Rx Cetirizine HCl [Zyrtec 10mg tab] 10 mg PO DAILY #60 tablet 03/16/22 Unknown Rx Prednisone [predniSONE 10 mg 10 mg PO .TAPER #1 03/16/22 Unknown Rx (6-Day Pack, 21 Tabs)] Allergies Allergy/AdvReac Type Severity Reaction Status Date / Time No Known Allergies Allergy Verified 03/16/22 17:02 ED Review of Systems ROS: Stated complaint: CHEST PAIN /ASTHMA Other details as noted in HPI Constitutional: denies: chills, fever Eyes: denies: eye pain, eye discharge, vision change ENT: congestion. denies: ear pain, throat pain Respiratory: cough, shortness of breath, wheezing Cardiovascular: chest pain (Chest tightness). denies: palpitations Endocrine: no symptoms reported Gastrointestinal: denies: abdominal pain, nausea, vomiting, diarrhea Genitourinary: denies: urgency, dysuria, discharge Musculoskeletal: denies: back pain, joint swelling, arthralgia Skin: denies: rash, lesions Neurological: denies: headache, weakness, paresthesias Psychiatric: denies: anxiety, depression Hematological/Lymphatic: denies: easy bleeding, easy bruising ED Past Medical Hx - Past Medical History Previous Medical History?: Yes Hx Asthma: Yes - Social History Smoking Status: Never Smoker Substance Use Type: None (Denies illicit drug use), Alcohol (Occasional) - Medications Home Medications: Home Medications Medication Instructions Recorded Confirmed Last Taken Type Cetirizine HCl [Zyrtec 10mg tab] 10 mg PO DAILY #30 tablet 01/16/20 Unknown Rx Albuterol Sulfate [Proair 90 mcg IH Q4HR PRN #2 aer.pow.ba 07/03/21 Unknown Rx Respiclick] predniSONE [Deltasone] 40 mg PO QDAY #8 tab 07/03/21 Unknown Rx Acetaminophen [Non-Aspirin Extra 500 mg PO Q6HR PRN #30 tablet 07/28/21 Unknown Rx Strength] Albuterol Sulfate [Proair 90 mcg IH Q4HR PRN #2 aer.pow.ba 07/28/21 Unknown Rx Respiclick] Ibuprofen [Motrin] 600 mg PO Q8H PRN #30 tablet 07/28/21 Unknown Rx Albuterol Mdi (or & Nicu Only) 2 puff IH QID PRN #8.5 gram 08/12/21 Unknown Rx [ProAir HFA Inhaler] Albuterol Sulfate [Albuterol 0.63% 0.63 mg IH TID PRN #75 ml 08/12/21 Unknown Rx NEBS] Albuterol Mdi (or & Nicu Only) 2 puff IH QID PRN #1 inhalation 11/07/21 Unknown Rx [ProAir HFA Inhaler] Prednisone [predniSONE 10 mg 10 mg PO .TAPER #1 tab.ds.pk 11/07/21 Unknown Rx (6-Day Pack, 21 Tabs)] Benzonatate [Tessalon Perles] 100 mg PO Q8HR #30 cap 03/16/22 Unknown Rx Cetirizine HCl [Zyrtec 10mg tab] 10 mg PO DAILY #60 tablet 03/16/22 Unknown Rx Prednisone [predniSONE 10 mg 10 mg PO .TAPER #1 03/16/22 Unknown Rx (6-Day Pack, 21 Tabs)] ED Physical Exam - General Limitations: No Limitations General appearance: alert, in no apparent distress - Head Head exam: Present: atraumatic, normocephalic, normal inspection - Eye Eye exam: Present: normal appearance, PERRL, EOMI Pupils: Present: normal accommodation - ENT ENT exam: Present: normal orophraynx, mucous membranes moist, TM's normal bilaterally, normal external ear exam, other (Mild grossly congested nasal passages) - Neck Neck exam: Present: normal inspection, full ROM. Absent: tenderness - Respiratory Respiratory exam: Present: wheezes (Diffuse coarse wheezes throughout). Absent: normal lung sounds bilaterally, respiratory distress, rhonchi, chest wall tenderness, accessory muscle use, decreased breath sounds, prolonged expiratory - Cardiovascular Cardiovascular Exam: Present: normal rhythm, tachycardia, normal heart sounds. Absent: systolic murmur, diastolic murmur, rubs, gallop - GI/Abdominal GI/Abdominal exam: Present: soft, normal bowel sounds. Absent: tenderness, guarding, rebound, hyperactive bowel sounds, hypoactive bowel sounds, mass, pulsatile mass - Extremities Exam Extremities exam: Present: normal inspection, full ROM, normal capillary refill - Back Exam Back exam: Present: normal inspection, full ROM. Absent: tenderness, CVA tenderness (R), CVA tenderness (L), muscle spasm, paraspinal tenderness, vertebral tenderness - Neurological Exam Neurological exam: Present: alert, oriented X3, CN II-XII intact, normal gait, reflexes normal - Psychiatric Psychiatric exam: Present: normal affect, normal mood - Skin Skin exam: Present: warm, dry, intact, normal color. Absent: rash ED Course Vital Signs 03/16/22 16:54 Temperature 98.1 F Pulse Rate 108 H Respiratory 18 Rate Blood Pressure 116/75 [Left] O2 Sat by Pulse 100 Oximetry ED Medical Decision Making - Radiology Data Radiology results: report reviewed, image reviewed [facility] [address] [place] [address] XRay Report Signed Patient: SOUMYA PELLETIER MR#: [id number] : 1995 Acct:[id number] Age/Sex: 26 / F ADM Date: 03/16/22 Loc: ED Attending Dr: Ordering Physician: SIDDHARTHA BAKER Date of Service: 03/16/22 Procedure(s): XR chest 1V ap Accession Number(s): [id number] cc: SIDDHARTHA BAKER Fluoro Time In Minutes: CHEST 1 VIEW 03/16/2022 5:03 PM INDICATION / CLINICAL INFORMATION: dyspnea, asthma. COMPARISON: 11/06/2021 FINDINGS: SUPPORT DEVICES: None. HEART / MEDIASTINUM: Normal. LUNGS / PLEURA: No acute pulmonary or pleural findings. No pneumothorax. ADDITIONAL FINDINGS: No significant additional findings. IMPRESSION: 1. No acute findings. Signer Name: Guy Kerns MD Signed: 03/16/2022 6:12 PM Workstation Name: [id number] Transcribed By: SHAAN Dictated By: Guy Kerns MD Electronically Authenticated By: Guy Kerns MD Signed Date/Time: 03/16/221811 DD/ 11 TD/TT: - Medical Decision Making This is a 26-year-old female with history of asthma and morbid obesity presents to the ED with complaint of acute onset persistent shortness of breath, persistent dry cough, nasal and sinus congestion and chest tightness for the last 1 week, worse in the last 3 days. Patient states that she has been using her nebulizers as well as inhalers at home with no relief. In the ED, patient is alert and oriented x3 and is not in any distress. Patient received Solu- Medrol 125 mg intramuscular injection. Patient also received DuoNeb treatment for 1 hour. Chest x-ray showed no acute cardiopulmonary abnormalities or pneumonitis. On reevaluation, patient wheezing resolved, patient felt better and oxygen saturation ranged from 99 to 100% in room air. Patient was discharged home on medications and advised to follow-up with her primary care physician in 7 to 10 days for reevaluation return to the ED immediately if sy mptoms get worse. - Differential Diagnosis Asthma; bronchitis; URI; pneumonia; COVID-19; rhinitis Critical care attestation.: If time is entered above; I have spent that time in minutes in the direct care of this critically ill patient, excluding procedure time. ED Disposition Clinical Impression: Acute bronchitis with asthma with acute exacerbation, Shortness of breath Disposition: 01 HOME / SELF CARE / HOMELESS Is pt being admited?: No Does the pt Need Aspirin: No Condition: Stable Instructions: Shortness of Breath, Adult, [id number], Cough, Adult, [id number], Acute Bronchitis, Adult, [id number], Asthma, Adult, [id number] Additional Instructions: Chest x-ray showed no acute cardiopulmonary abnormalities or pneumonitis. Therefore take medication with food, drink plenty of fluids, follow-up with your primary care physician in 7 to 10 days for reevaluation. Return to the ED immediately if symptoms get worse. Prescriptions: Prednisone [predniSONE 10 mg (6-Day Pack, 21 Tabs)] 10 mg PO .TAPER #1 Benzonatate [Tessalon Perles] 100 mg PO Q8HR #30 cap Cetirizine HCl [Zyrtec 10mg tab] 10 mg PO DAILY #60 tablet Referrals: [facility] [Provider Group] - 7-10 days Forms: Work/School Release Form(ED) Time of Disposition: 19:20 Print Language: OCCITAN
[2022-03-16 19:36] VITALS: BP 123/79
== END 2022-03-16 19:49 | disposition home or self-care (01) ==
LOC: ED 15:46
DX: J45.901 Unspecified asthma with (acute) exacerbation (principal); R06.02 Shortness of breath; F10.20 Alcohol dependence, uncomplicated
CPT/HCPCS: 71045; 94640; 96372; 99283; J2930; 94644